=== PATIENT | female | born 2000 | race Caucasian/White ===

== ENCOUNTER 2021-06-04 19:37 | Emergency (ER) | payer OTHER ==
[~2021-06-04] VITALS: Ht 165.1 cm; Wt 87.5 kg
== END 2021-06-04 22:59 | disposition home or self-care (01) ==
LOC: ER 19:37
DX: O20.9 Hemorrhage in early pregnancy, unspecified (principal)

== ENCOUNTER 2021-11-29 12:08 | Emergency (ER) | payer OTHER ==
[~2021-11-29] VITALS: Ht 165.1 cm; Wt 89.8 kg
[2021-11-29] MEDS ORDERED: PRENATABS FA T1 EACH PO (12:34)
== END 2021-11-29 15:34 | disposition home or self-care (01) ==
LOC: ER 12:08
DX: O26.891 Other specified pregnancy related conditions, first trimester (principal); Z3A.10 10 weeks gestation of pregnancy; R10.2 Pelvic and perineal pain; M54.59 Other low back pain; Z20.822 Contact with and (suspected) exposure to COVID-19

== ENCOUNTER 2021-12-07 18:27 | Emergency (ER) | payer OTHER ==
[~2021-12-07] VITALS: Ht 170.2 cm; Wt 103.9 kg
[~2021-12-07 18:27] MED LIST: PRENATABS FA T1 EACH PO
== END 2021-12-07 22:24 | disposition home or self-care (01) ==
LOC: ER 18:27
DX: O20.9 Hemorrhage in early pregnancy, unspecified (principal); Z3A.11 11 weeks gestation of pregnancy

== ENCOUNTER 2024-07-21 22:43 | Emergency (ER) | payer OTHER ==
[~2024-07-21] VITALS: Ht 165.1 cm; Wt 94.3 kg
[2024-07-21] MEDS ORDERED: MONODOX100 MG PO (23:32)
[2024-07-21 23:33] VITALS: BP 112/76; O2SAT 100
[2024-07-22] MEDS ORDERED: HYOSCYAMINE SULFATE 0.125 MG TAB.SUBL ONE (02:44)
[2024-07-22] MEDS ORDERED: HYOSCYAMINE SULFATE 0.125 MG TAB.SUBL SL ONE (02:45)
[2024-07-22 04:16] LABS: BASO % 0.3 % (0.1-1.2); EOS # 0.13 (0.04-0.54); EOS % 1.7 % (0.7-7.0); HEMOGLOBIN 11.6 g/dL (11.2-15.7); LYMPH # 2.02 (1.18-3.74); MEAN CORPUSCULAR HEMOGLOBIN 26.7 pg (25.6-32.2); MONO # 0.46 (0.24-0.82); MONO % 6.2 % (4.7-12.5); NEUT # 4.83 (1.56-6.13); NEUT % 64.7 % (34.0-71.1); PLATELET COUNT 349 K/uL (163-369); RED BLOOD COUNT 4.34 M/uL (3.93-5.22); RED CELL DISTRIBUTION WIDTH 14.6 % (11.6-14.4)
[2024-07-22 04:25] LABS: URINE APPEARANCE Clear; URINE BILIRRUBIN Negative (NEGATIVE); URINE BLOOD Large; URINE COLOR Yellow; URINE GLUCOSE Negative (NEGATIVE); URINE KETONE Trace (NEGATIVE); URINE LEUKOCYTE Negative; URINE NITRATE Negative; URINE PROTEIN Trace (NEGATIVE)
[2024-07-22 04:29] LABS: URINE BACTERIA 298.6 uL (0.0-1933); URINE EPITHELIAL CELLS 4.7 uL (0.0-38.8); URINE RBC 1369.3 uL (0.0-20.8); URINE WBC 11.3 uL (0.0-23.2)
[2024-07-22 04:35] LABS: URINE CAST 0.14 uL (0.0-1.40)
[2024-07-22 04:46] LABS: ALBUMIN 3.5 gm/dL (3.4-5.0); BILIRUBIN TOTAL 0.31 mg/dL (0.3-1.2); CALCIUM 8.9 mg/dL (8.5-10.1); CREATININE SERUM 0.68 mg/dL (0.55-1.02); GFR 106.3; GLOBULINA 3.5 G/DL (2.4-3.5); POTASSIUM 3.79 mEq/L (3.5-5.1)
[2024-07-22] MEDS ORDERED: POLY119PG PO (06:00)
[2024-07-22] MEDS ORDERED: LEVSIN/SL0.125 MG SL (06:00)
== END 2024-07-22 06:15 ==
LOC: ER 22:58
PROVIDERS: General Practice
DX: O90.89 Other complications of the puerperium, not elsewhere classified (principal); K59.00 Constipation, unspecified; R10.2 Pelvic and perineal pain